=== PATIENT | female | born 1950 | race Caucasian/White ===

== ENCOUNTER 2022-06-08 07:01 | Emergency (ER) | payer OTHER ==
[~2022-06-08] VITALS: Ht 160 cm; Wt 75.3 kg
[~2022-06-08 07:01] MED LIST: CITALOPRAM HBR20 MG; TIZANIDINE HCL2 MG PO
[2022-06-08] MEDS ORDERED: CLONAZEPAM1 M1 PO (07:21)
[2022-06-08] MEDS ORDERED: ZOCOR40 MG PO (07:22)
== END 2022-06-08 11:48 | disposition home or self-care (01) ==
LOC: ER 07:01
DX: B34.8 Other viral infections of unspecified site (principal); U07.1 COVID-19